=== PATIENT | male | born 1975 | race Two or more races ===

== ENCOUNTER 2017-07-29 20:43 | Emergency (ER) | payer OTHER ==
[2017-07-29 21:00] LABS: POC GLUCOSE 117 mg/dL (70-99)
[2017-07-29 21:28] LABS: ADD MAN DIFF? NO
[2017-07-29 21:30] LABS: BASO # 0.1 x10^3/uL (0.0-0.2); BASO % 1 % (0-3); EOS # 0.2 x10^3/uL (0.0-0.7); EOS % 2 % (0-3); HEMATOCRIT 46.9 % (39.0-53.0); HEMOGLOBIN 15.5 g/dL (13.0-17.5); LYMPH # 2.5 x10^3/uL (1.0-4.8); LYMPH % 34 % (24-48); MEAN CORPUSCULAR HEMOGLOBIN 28 pg (25-35); MEAN CORPUSCULAR HGB CONC 33 g/dL (31-37); MEAN CORPUSCULAR VOLUME 84 fL (79-100); MONO # 0.6 x10^3/uL (0.0-1.1); MONO % 8 % (0-9); NEUT # 4.1 x10^3uL (1.8-7.7); NEUT % 55 % (31-73); PLATELET COUNT 233 x10^3/uL (140-400); RED BLOOD COUNT 5.61 x10^6/uL (4.30-5.70); WHITE BLOOD COUNT 7.5 x10^3/uL (4.0-11.0)
[2017-07-29 21:31] LABS: BILIRUBIN,URINE NEGATIVE (NEG); CLARITY,URINE CLEAR; COLOR,URINE YELLOW; GLUCOSE,URINE NEGATIVE (NEG); NITRITE,URINE NEGATIVE (NEG); PH,URINE 7.5; PROTEIN,URINE NEGATIVE (NEG-TRACE); UROBILINOGEN,URINE 0.2 mg/dL (0.2 mg/dL)
[2017-07-29 21:35] LABS: BACTERIA,URINE 0 /HPF (0-FEW); RBC,URINE 0 /HPF (0-2); SQUAMOUS EPITHELIAL CELL,UR OCC /LPF; WBC,URINE 0 /HPF (0-4)
[2017-07-29 21:44] LABS: ANION GAP 9 (6-14); BLOOD UREA NITROGEN 20 mg/dL (8-26); BUN/CREATININE RATIO 29 (6-20); CARBON DIOXIDE 31 mmol/L (21-32); CHLORIDE 102 mmol/L (98-107); CREATININE 0.7 mg/dL (0.7-1.3); GFR 125.5; GLUCOSE 106 mg/dL (70-99); POTASSIUM 3.7 mmol/L (3.5-5.1); SODIUM 142 mmol/L (136-145)
[2017-07-29 21:44] LABS: D-DIMER 0.27 ug/mlFEU (0.00-0.50)
[2017-07-29 21:53] LABS: TROPONINI < 0.017 ng/mL (0.000-0.055)
[2017-07-29 21:54] LABS: ALBUMIN 4.2 g/dL (3.4-5.0); ALBUMIN/GLOBULIN RATIO 1.1 (1.0-1.7); ALK PHOS 71 U/L (46-116); ALT (SGPT) 59 U/L (16-63); AST (SGOT) 38 U/L (15-37); LIPASE 102 U/L (73-393); TOTAL BILIRUBIN 0.4 mg/dL (0.2-1.0); TOTAL PROTEIN 7.9 g/dL (6.4-8.2)
[2017-07-29 21:57] LABS: THYROID STIM HORMONE (TSH) 1.167 uIU/mL (0.358-3.74)
[2017-07-29 21:58] LABS: CKMB INDEX 0.6 % (0-4); CKMB MASS 2.2 ng/mL (0.0-3.6); CREATINE KINASE 365 U/L (39-308)
[2017-07-29] MEDS: IV NORMAL SALINE 1000ML BAG 1,000 ML IV (22:15)
== END 2017-07-29 23:01 | disposition home or self-care (01) ==
LOC: ER 23:01
DX: J45.909 Unspecified asthma, uncomplicated (principal); E86.0 Dehydration; F41.9 Anxiety disorder, unspecified; F12.10 Cannabis abuse, uncomplicated
CPT/HCPCS: 36415; 71045; 80053; 81001; 82553; 82962; 83690; 84443; 84484; 85025; 85379; 93005; 96360; 99285-25; J7030